=== PATIENT | female | born 1965 | race African-American/Black ===

== ENCOUNTER 2016-06-27 23:06 | Inpatient (IN) | payer OTHER ==
[~2016-06-27] VITALS: Ht 163.8 cm; Wt 118.0 kg
[~2016-06-27 23:06] MED LIST: APRISO0.375 GM PO; DELZICOL400 MG PO; DICYCLOMINE HCL10 MG PO; FLAGYL500 MG PO; FLONASE16 G1 BOTH NARES; HYDROCHLOROTH12.5 M3 PO; LISINOPRIL30 MG PO; METOPROLOL SUC100 MG PO; PREDNISONE5 MG PO; SKELAXIN800 MG PO; ZYRTEC10 M3 PO
[2016-06-28 01:52] LABS: HEMATOCRIT 43.6 % (36.0-46.0); MCH 28.7 PG (29.0-34.0); MCHC 32.8 G/DL (30.0-36.0); MCV 87.4 FL (83-99); RBC DIS.WIDTH-CV 15.9 % (11.8-14.6); RBC DIS.WIDTH-SD 50.7 % (39-53); RED BLOOD COUNT 4.99 M/uL (3.80-5.20); WHITE BLOOD COUNT 13.7 K/uL (4.1-10.2)
[2016-06-28 02:03] LABS: CHLORIDE 102 mEq/L (99-109); POTASSIUM 3.9 mEq/L (3.7-5.4); SODIUM 140 mEq/L (136-147)
[2016-06-28 02:05] LABS: GLUCOSE 181 mg/dL (70-99)
[2016-06-28 02:07] LABS: ANION GAP 11 MEQ/L (2-14); TOTAL BILIRUBIN 0.5 mg/dL (0.0-1.0)
[2016-06-28 02:09] LABS: ALKALINE PHOSPHATASE 112 IU/L (3-129); GFR ESTIMATE (CALCULATED) > 59 mL/min/
[2016-06-28 02:10] LABS: UREA NITROGEN (BUN) 17 mg/dL (9-23)
[2016-06-28 02:36] LABS: MEAN PLAT.VOLUME 11.8 uM^3 (9.5-12.4); PLAT.SUFFICIENCY ADEQUATE; PLATELET COUNT 184 K/uL (156-360)
[2016-06-28] MEDS ORDERED: REMICADE10 MG/ML IV (03:00)
[2016-06-28] MEDS ORDERED: FLEXERIL10 MG PO (08:19)
[2016-06-28] MEDS ORDERED: APRISO0.375 GM PO (08:20)
[2016-06-28] MEDS ORDERED: PRAVASTATIN SOD40 MG PO (08:21)
[2016-06-28] MEDS ORDERED: LIDEX 0.05% CRE60 GM TP (08:21)
[2016-06-28] MEDS ORDERED: METFORMIN HCL500 MG PO (08:22)
[2016-06-28] MEDS ORDERED: AMITRIPTYLINE H25 MG PO (08:23)
[2016-06-28] MEDS ORDERED: ERGOCALCIF50000 UNIT PO (08:24)
[2016-06-28] MEDS ORDERED: PATANOL OP100 DROP/5 RIGHT EYE (08:24)
[2016-06-28] MEDS ORDERED: [UNRECOGNIZED DRUG - CODE] TP (08:27)
[2016-06-28 13:50] VITALS: BP 114/57
[2016-06-28 16:05] VITALS: BP 120/62
[2016-06-28 19:32] VITALS: BP 113/55
[2016-06-28 23:35] VITALS: BP 121/62
[2016-06-29 07:50] VITALS: BP 120/62
[2016-06-29 08:49] LABS: EOSINOPHIL (%) 1.4 % (0-5); EOSINOPHIL COUNT 0.1 K/uL (0-0.3); HEMATOCRIT 41.7 % (36.0-46.0); IMMATURE GRANULOCYTE (%) 0.2 % (0.0-0.7); LYMPHOCYTE COUNT 2.9 K/uL (1.0-2.8); MCH 28.2 PG (29.0-34.0); MCHC 32.4 G/DL (30.0-36.0); MCV 87.1 FL (83-99); MEAN PLAT.VOLUME 11.4 uM^3 (9.5-12.4); MONOCYTE (%) 13.4 % (3-12); MONOCYTE COUNT 1.1 K/uL (0-0.8); NEUTROPHIL (%) 49.2 % (45-76); PLATELET COUNT 177 K/uL (156-360); RBC DIS.WIDTH-CV 15.5 % (11.8-14.6); RBC DIS.WIDTH-SD 50.2 % (39-53); RED BLOOD COUNT 4.79 M/uL (3.80-5.20)
[2016-06-29 08:52] LABS: WHITE BLOOD COUNT 8.1 K/uL (4.1-10.2)
[2016-06-29 09:01] LABS: ANION GAP 9 MEQ/L (2-14); CHLORIDE 103 MEQ/L (99-109); GFR ESTIMATE (CALCULATED) > 59 mL/min/; POTASSIUM 3.6 MEQ/L (3.7-5.4); SAMPLE HEMOLYSIS CHECK 0; SAMPLE ICTERIC CHECK 0; SAMPLE LIPEMIA CHECK 0; SODIUM 137 MEQ/L (136-147); UREA NITROGEN (BUN) 12 mg/dL (9-23)
[2016-06-29 09:06] LABS: GLUCOSE 116 mg/dL (70-99)
[2016-06-29 12:02] VITALS: BP 129/61
[2016-06-29 15:45] VITALS: BP 123/78
[2016-06-29 16:50] VITALS: BP 169/76
[2016-06-29 19:01] LABS: POINT-OF-CARE METER ID UU13113675
[2016-06-29 20:18] VITALS: BP 134/65
[2016-06-29 23:14] VITALS: BP 135/62
[2016-06-30 03:38] VITALS: BP 117/73
[2016-06-30 06:42] LABS: POINT-OF-CARE METER ID UU14162508
[2016-06-30 07:51] LABS: EOSINOPHIL (%) 1.1 % (0-5); EOSINOPHIL COUNT 0.1 K/uL (0-0.3); HEMATOCRIT 42.4 % (36.0-46.0); IMMATURE GRANULOCYTE (%) 0.3 % (0.0-0.7); INSTRUMENT ABS NEUTROPHIL CT 5.3 K/uL; LYMPHOCYTE COUNT 2.4 K/uL (1.0-2.8); MCHC 32.1 G/DL (30.0-36.0); MCV 87.4 FL (83-99); MEAN PLAT.VOLUME 11.7 uM^3 (9.5-12.4); MONOCYTE (%) 10.7 % (3-12); MONOCYTE COUNT 0.9 K/uL (0-0.8); NEUTROPHIL (%) 60.6 % (45-76); NEUTROPHIL COUNT 5.3 K/uL (1.8-6.4); PLATELET COUNT 193 K/uL (156-360); RBC DIS.WIDTH-CV 15.6 % (11.8-14.6); RBC DIS.WIDTH-SD 50.3 % (39-53); RED BLOOD COUNT 4.85 M/uL (3.80-5.20); WHITE BLOOD COUNT 8.8 K/uL (4.1-10.2)
[2016-06-30 08:19] LABS: ALKALINE PHOSPHATASE 87 IU/L (3-129); ANION GAP 8 MEQ/L (2-14); CHLORIDE 105 MEQ/L (99-109); GFR ESTIMATE (CALCULATED) > 59 mL/min/; GLUCOSE 114 mg/dL (70-99); SAMPLE HEMOLYSIS CHECK 0; SAMPLE ICTERIC CHECK 0; SAMPLE LIPEMIA CHECK 0; SODIUM 140 MEQ/L (136-147); TOTAL BILIRUBIN 0.8 MG/DL (0.0-1.0); UREA NITROGEN (BUN) 14 mg/dL (9-23)
[2016-06-30 08:20] LABS: POTASSIUM 4.4 MEQ/L (3.7-5.4)
[2016-06-30 08:50] VITALS: BP 121/68
[2016-06-30 09:25] LABS: CREATINE KINASE 59 IU/L (1-294)
[2016-06-30] MEDS ORDERED: HYDROCODON-ACE1 EAC7 PO (13:48)
[2016-06-30] MEDS ORDERED: COLACE100 MG PO (13:48)
[2016-06-30] MEDS ORDERED: AUGMENTIN875 MG PO (13:48)
[2016-06-30] MEDS ORDERED: FLORASTOR250 MG PO (13:48)
[2016-06-30 15:25] VITALS: BP 131/75
== END 2016-06-30 19:05 | disposition home or self-care (01) | DRG 394 ==
LOC: EXP 23:06 → EME 23:06 → EDOF 06-28 05:41 → 2EASTP 06-28 05:41
PROVIDERS: Hospitalist; Internal Medicine; Physician Assistant
PROC: 0J9B0ZX Drainage of Perineum Subcutaneous Tissue and Fascia, Open Approach, Diagnostic (ICD-10-PCS; principal; 2016-06-29)
DX: K61.3 Ischiorectal abscess (principal); K92.2 Gastrointestinal hemorrhage, unspecified; Z68.41 Body mass index [BMI] 40.0-44.9, adult; E66.01 Morbid (severe) obesity due to excess calories; K51.00 Ulcerative (chronic) pancolitis without complications; L40.50 Arthropathic psoriasis, unspecified; K80.80 Other cholelithiasis without obstruction; I10 Essential (primary) hypertension; G47.33 Obstructive sleep apnea (adult) (pediatric); M79.7 Fibromyalgia; F17.210 Nicotine dependence, cigarettes, uncomplicated; F12.10 Cannabis abuse, uncomplicated
CPT/HCPCS: 74177; 80048; 80053; 82550; 82550 91; 82948; 84520; 85025; 85027; 87070; 87075; 87076; 87205; 99281; 99285; J0131; J0330; J0744; J1100; J1170; J1644; J1815; J1956; J2270; J2405; J2543; J3010; J7030; J7050; J7120; S0030

== ENCOUNTER 2016-09-25 21:42 | Emergency (ER) | payer OTHER ==
[~2016-09-25] VITALS: Ht 165.1 cm; Wt 123.9 kg
[~2016-09-25 21:42] MED LIST changes: +AMITRIPTYLINE H25 MG PO; +AUGMENTIN875 MG PO; +COLACE100 MG PO; +ERGOCALCIF50000 UNIT PO; +FLEXERIL10 MG PO; +FLORASTOR250 MG PO; +HYDROCODON-ACE1 EAC7 PO; +LIDEX 0.05% CRE60 GM TP; +METFORMIN HCL500 MG PO; +PATANOL OP100 DROP/5 RIGHT EYE; +PRAVASTATIN SOD40 MG PO; +REMICADE10 MG/ML IV; +[UNRECOGNIZED DRUG - CODE] TP
[2016-09-26 00:29] LABS: HEMATOCRIT 41.3 % (36.0-46.0); MCH 28.8 PG (29.0-34.0); MCHC 32.4 G/DL (30.0-36.0); MCV 88.8 FL (83-99); PLATELET COUNT 196 K/uL (156-360); RBC DIS.WIDTH-CV 15.5 % (11.8-14.6); RED BLOOD COUNT 4.65 M/uL (3.80-5.20); WHITE BLOOD COUNT 11.1 K/uL (4.1-10.2)
[2016-09-26 00:36] LABS: CHLORIDE 107 mEq/L (99-109); POTASSIUM 3.9 mEq/L (3.7-5.4); SODIUM 140 mEq/L (136-147)
[2016-09-26 00:39] LABS: GLUCOSE 107 mg/dL (70-99)
[2016-09-26 00:40] LABS: ANION GAP 8 MEQ/L (2-14)
[2016-09-26 00:41] LABS: TOTAL BILIRUBIN 0.2 mg/dL (0.0-1.0)
[2016-09-26 00:42] LABS: ALKALINE PHOSPHATASE 180 IU/L (3-129); GFR ESTIMATE (CALCULATED) > 59 mL/min/
[2016-09-26 00:43] LABS: UREA NITROGEN (BUN) 24 mg/dL (9-23)
[2016-09-26] MEDS ORDERED: FLAGYL500 MG PO (02:03)
[2016-09-26] MEDS ORDERED: PERCOCET 5/31 TABLET PO (02:03)
[2016-09-26] MEDS ORDERED: CIPRO500 MG PO (02:03)
[2016-09-26 02:43] VITALS: BP 139/64
== END 2016-09-26 02:44 | disposition home or self-care (01) ==
LOC: EXP 21:42 → EME 21:42 → EXP 09-26 02:44
PROVIDERS: Physician Assistant
DX: L02.31 Cutaneous abscess of buttock (principal); F17.200 Nicotine dependence, unspecified, uncomplicated
CPT/HCPCS: 74177; 80053; 85027; 99281; 99284; J0744; J3010

== ENCOUNTER 2016-09-28 20:48 | Emergency (ER) | payer OTHER ==
[~2016-09-28] VITALS: Ht 162.6 cm; Wt 116.4 kg
[~2016-09-28 20:48] MED LIST changes: +CIPRO500 MG PO; +PERCOCET 5/31 TABLET PO
[2016-09-28 21:36] LABS: HEMATOCRIT 49.6 % (36.0-46.0); MCH 28.4 PG (29.0-34.0); MCHC 33.3 G/DL (30.0-36.0); MCV 85.5 FL (83-99); MEAN PLAT.VOLUME 11.3 uM^3 (9.5-12.4); RBC DIS.WIDTH-CV 14.9 % (11.8-14.6); RBC DIS.WIDTH-SD 46.3 % (39-53); WHITE BLOOD COUNT 6.5 K/uL (4.1-10.2)
[2016-09-28 21:37] LABS: PLATELET COUNT 271 K/uL (156-360)
[2016-09-28 21:43] LABS: CHLORIDE 103 mEq/L (99-109); POTASSIUM 3.7 mEq/L (3.7-5.4); SODIUM 138 mEq/L (136-147)
[2016-09-28 21:45] LABS: GLUCOSE 138 mg/dL (70-99)
[2016-09-28 21:46] LABS: ANION GAP 15 MEQ/L (2-14)
[2016-09-28 21:49] LABS: GFR ESTIMATE (CALCULATED) > 59 mL/min/
[2016-09-28 21:50] LABS: UREA NITROGEN (BUN) 20 mg/dL (9-23)
[2016-09-28 21:51] LABS: ALKALINE PHOSPHATASE 128 IU/L (3-129); TOTAL BILIRUBIN 0.8 mg/dL (0.0-1.0)
[2016-09-28 21:57] LABS: QUANTITATIVE HCG < 4.0 MIU/ML
[2016-09-29] MEDS ORDERED: AUGMENTIN500 MG PO (01:43)
[2016-09-29] MEDS ORDERED: ZOFRAN4 MG PO (01:43)
[2016-09-29 02:05] VITALS: BP 154/88
== END 2016-09-29 02:00 | disposition home or self-care (01) ==
LOC: EME 20:48
DX: R11.2 Nausea with vomiting, unspecified (principal); R19.7 Diarrhea, unspecified; T36.95XA Adverse effect of unspecified systemic antibiotic, initial encounter; F17.200 Nicotine dependence, unspecified, uncomplicated; M79.7 Fibromyalgia; I10 Essential (primary) hypertension; F32.9 Major depressive disorder, single episode, unspecified; K61.0 Anal abscess; Z79.84 Long term (current) use of oral hypoglycemic drugs
CPT/HCPCS: 80053; 81003; 84702; 85027; 99281; 99284; J3010; J7030